=== PATIENT | female | born 1975 | race Caucasian/White ===

== ENCOUNTER → 2018-01-02 | Outpatient (CLI) | payer OTHER ==
[~2018-01-02] MED LIST: ACE3 PO; ACYC800T99 PO; AMOX-559 PO; ASCO-201 PO; CALC-547 PO; DOXY150T6 PO; ESCI20TA38 PO; ESTR1 PO; HYDR-4309 PO; MESA4ENE RC; MID PO; MULT-VITAMIN PO; MULT1CAP41 PO; SUL500 PO; VEN375 PO
--- NOTE | 2018-01-02 14:00 | RADIOLOGY IMAGING REPORT ---
FACILITY: [facility] - [place] PATIENT NAME: LUANN GIBSON : [id number] MR: [id number] V: [id number] EXAM DATE: [id number] ORDERING PHYSICIAN: NANCY BAINS TECHNOLOGIST: Rubi Celaya PROCEDURE:BILATERAL DIGITAL SCREENING MAMMOGRAM WITH CAD ASSISTED INTERPRETATION & 3D TOMOSYNTHESIS COMPARISON:None. TECHNIQUE: MLO & CC views were obtained. This examination was reviewed with the aid of CAD. Breast tissue demonstrates heterogeneous density. INDICATIONS:SCREENING FINDINGS: There is no suspicious mass, calcification or architectural distortion. DIAGNOSTIC CATEGORY 1: NEGATIVE RECOMMENDATIONS: Routine yearly screening mammography. IMPRESSION: BIRADS 1: Negative. No mammographic evidence for malignancy. Dictated by: Tomas Sauer M.D. on 01/02/2018 at 12:21 Transcribed by: DAMARI on 01/02/2018 at 13:29 Approved by: Tomas Sauer M.D. on 01/02/2018 at 13:59 [facility]
== END ==
LOC: MAMO 01:26
PROVIDERS: ATTEND Obstetrics & Gynecology
DX: Z12.31 Encounter for screening mammogram for malignant neoplasm of breast (principal)
CPT/HCPCS: 77063; 77067

== ENCOUNTER 2018-01-06 16:25 | Emergency (ER) | payer OTHER ==
[~2018-01-06] VITALS: Ht 160 cm; Wt 74.8 kg
--- NOTE | 2018-01-06 16:31 | ER Report ---
History and Physical Time Seen By MD: 16:30 (DEVINKYUNG FLORES MD) HPI/ROS CHIEF COMPLAINT: abdominal pain, fevers/chills, n/v/d HISTORY OF PRESENT ILLNESS: This is a 42 year old female. She had start of fevers and chills last night. Having nausea and vomiting last night. Today with dry heaves. Having watery diarrhea since last night. Has ulcerative colitis on immunosuppression. Hs noted some blood in the stool. Abdominal pain is mainly in the left lower abdomen, but also in the left upper and epigastric area as well. About 1 week ago had upper respiratory infection which was improving. She has mild runny nose with this, denies sore throat. She has a headache and some photophobia as well. Has diffuse muscle aches and pains. No dysuria, but has not urinated much as she has not had much to drink recently. No blood in the urine. No rashes. No bruising. No chest pain. .No cough or shortness of breath. Was seen by the nurse practitioner at Dr. Paulino's office today, had a negative influenza and a urinalysis that had blood on the dipstick. On Mesalamine enemas for Ulcerative Colitis and on Remicade and Methotrexate. (KYUNG BELTRAN MD) Allergies: Coded Allergies: adhesive (Verified Allergy, Unknown, 01/06/18) SKIN TURNS BRIGHT RED sulfasalazine (Verified Allergy, Unknown, 01/06/18) MAKES WBCS ELEVATE erythromycin base (Verified Adverse Reaction, Mild, UPSET STOMACH, 06/13/15 ) oxycodone (Verified Adverse Reaction, Mild, UPSET STOMACH, 06/13/15) Home Meds Active Scripts Ondansetron (ZOFRAN ODT) 4 Mg Tab.rapdis, 4 MG PO every 6 hours Y for NAUSEA/ VOMITING, #12 TAB TAKE 1 TABLET BY MOUTH EVERY 12 HOURS Prov:COLTON PELAEZ DO 01/06/18 Prednisone (PREDNISONE) 20 Mg Tablet, 20 MG PO QDAY for reduce intestinal inflammation for 8 Days, #12 2 by mouth daily 4 days then 1 by mouth daily 4 days Prov:COLTON PELAEZ DO 01/06/18 Metronidazole (FLAGYL) 500 Mg Tablet, 500 MG PO BID for infection, #14 TAB Prov:COLTON PELAEZ DO 01/06/18 Ciprofloxacin Hcl (CIPRO) 500 Mg Tablet, 500 MG PO BID for infection, #14 Prov:COLTON PELAEZ DO 01/06/18 Reported Medications Cyclobenzaprine Hcl (CYCLOBENZAPRINE HCL) 10 Mg Tablet, 5 MG PO, #9 TAB 01/06/18 Atorvastatin Calcium (LIPITOR) 10 Mg Tablet, 1 TAB PO QDAY, TAB 01/06/18 Infliximab (REMICADE) 100 Mg Soln, 100 MG IV 01/06/18 Methotrexate Sodium (METHOTREXATE) 2.5 Mg Tablet, 2.5 MG PO 01/06/18 Mesalamine (Mesalamine) 4 G/60 Ml Enema, 4 G RC HS 03/31/13 Ascorbate Calcium (Vitamin C) 500 Mg Tablet, 500 MG PO QDAY 01/07/13 Venlafaxine Hcl (Effexor) 37.5 Mg Tab, 37.5 MG PO BID 01/07/13 Multivitamins W-Minerals (Multivitamin) 1 Cap Capsule, 1 CAP PO DAILY, 0 Refills 06/25/10 Estradiol (Estrace) 1 Mg Tab, 1 MG PO QDAY, 0 Refills 06/25/10 Discontinued Reported Medications Sulfasalazine (AZULFIDINE 500 MG TAB (OR EQUIV)) 500 Mg Tab, 500 MG PO BID 03/31/13 Calcium Carbonate/Vitamin D3 (Calcium + D 600 Mg Tablet) 1 Each Tablet, 1 EACH PO DAILY, 0 Refills 06/25/10 Discontinued Scripts Hydrocodone Bit/Acetaminophen (NORCO 5-325 TABLET) 1 Each Tablet, 1 EACH PO Q4- 6H Y for PAIN, #12 TAB Prov:RIDGE BURKSP 06/13/15 Amoxicillin/Pot Clav 875-125 Mg Tab (AUGMENTIN 875-125 TABLET) 1 Each Tablet, 1 TAB PO Q12H, #14 TAB Prov:RIDGE BURKS [employer] 06/13/15 Past Medical/Surgical History Ulcerative colitis, urinary tract infections, history of C. difficile, hypercholesterolemia, concussions, fibromyalgia, history of right wrist fracture and right foot fracture, has been hospitalized for bacterial meningitis in the past, depression. Surgical history of hysterectomy and right knee surgery and endometriosis. (KYUNG BELTRAN MD) Reviewed Nurses Notes: Yes (KYUNG BELTRAN MD) Hx Smoking: No Smoking Status: Never Smoker Exposure to Second Hand Smoke?: No (KYUNG BELTRAN MD) Constitutional Vital Sign - Last 24 Hours 01/06/18 01/06/18 01/06/18 01/06/18 16:33 18:15 18:45 19:00 Pulse 86 75 72 B/P (MAP) 122/81 124/77 (93) Pulse Ox 99 99 100 O2 Delivery Room Air O2 Flow Rate 2.0 01/06/18 01/06/18 01/06/18 01/06/18 19:15 19:28 19:30 19:45 Pulse 70 86 97 87 Resp 14 B/P (MAP) 124/77 (93) 118/83 (95) Pulse Ox 100 100 100 100 O2 Delivery Nasal Cannula O2 Flow Rate 2 01/06/18 01/06/18 01/06/18 01/06/18 19:49 20:00 20:15 20:20 Pulse 70 65 80 82 Resp 14 B/P (MAP) 104/69 (81) Pulse Ox 99 100 100 100 O2 Delivery Nasal Cannula O2 Flow Rate 2 01/06/18 01/06/18 01/06/18 01/06/18 20:25 20:30 20:35 20:40 Pulse 86 85 80 80 B/P (MAP) 112/71 (85) Pulse Ox 100 100 100 100 01/06/18 01/06/18 01/06/18 01/06/18 20:45 20:50 20:55 21:00 Pulse 79 77 75 79 B/P (MAP) 108/63 (78) Pulse Ox 100 100 100 100 01/06/18 01/06/18 01/06/18 21:05 21:10 21:25 Pulse 73 75 63 Resp 14 B/P (MAP) 110/66 (81) Pulse Ox 100 100 98 O2 Delivery Room Air (COLTON PELAEZ DO) Physical Exam General Appearance: The patient is alert. She is having acute distress because of pain. Eyes: Pupils are equal, round. Reactive to light. No pallor, injection or icterus. Extraocular movements are intact. Hypersensitivity to light on exam. No nystagmus. ENT: Mucous membranes are moist. Normal oral mucosa. Posterior oropharynx is normal. Normal nasal mucosa. Normal tympanic membranes and canals. Neck: Nontender anteriorly with palpation. She does have some pain with neck movement. No lymphadenopathy. Respiratory: Breathing easily and unlabored. Lungs are clear to auscultation. Cardiovascular: Regular rate and rhythm. No murmurs, gallops or rubs. Normal capillary refill. Gastrointestinal: Abdomen is soft, tender throughout, but worse in the left side , mainly lower abdomen. Has some guarding and rebound. Nondistended. Bowel sounds are hypoactive at this time. She does have some CVA tenderness of the left side with percussion, but none on the right. Neurological: Alert and oriented x3. Photophobia as noted. Hurts to move everything, but she can do so without focal weakness although she is very weak generally. Skin: Warm and dry. No rashes. Musculoskeletal: Diffuse musculoskeletal pain. No pain in the back/spine. DIFFERENTIAL DIAGNOSIS: After history and physical exam, differential diagnosis was considered for fevers/chills, nausea, diarrhea, abdominal pain, diffuse muscle aches, neck pain, photophobia in a patient with a history of immunosuppression, ulcerative colitis, c diff, and recent upper respiratory infection. Multiple possible causes of infection and pain and will need to consider the possibility of meningitis as well. ([facility]) Medical Decision Making Data Points Result Diagram: 01/06/18 1705 01/06/18 1705 Laboratory Hematology Test 01/06/18 00:00 01/06/18 17:05 01/06/18 17:37 01/06/18 18:53 Erythrocyte Sedimentation Rate 9 mm/HOUR (0-20) Red Blood Count 5.19 M/uL (4.17-5.56) Mean Corpuscular Volume 88.2 fL (80.0-96.0) Mean Corpuscular Hemoglobin 30.2 pg (26.0-33.0) Mean Corpuscular Hemoglobin Concent 34.3 g/dL (32.0-36.0) Red Cell Distribution Width 13.7 % (11.5-14.5) Mean Platelet Volume 8.9 fL (7.2-11.1) Neutrophils (%) (Auto) 70.6 % (39.4-72.5) Lymphocytes (%) (Auto) 12.1 % (17.6-49.6) Monocytes (%) (Auto) 16.8 % (4.1-12.4) Eosinophils (%) (Auto) 0.2 % (0.4-6.7) Basophils (%) (Auto) 0.3 % (0.3-1.4) Nucleated RBC Relative Count (auto) 0.1 /100WBC Neutrophils # (Auto) 6.3 K/uL (2.0-7.4) Lymphocytes # (Auto) 1.1 K/uL (1.3-3.6) Monocytes # (Auto) 1.5 K/uL (0.3-1.0) Eosinophils # (Auto) 0.0 K/uL (0.0-0.5) Basophils # (Auto) 0.0 K/uL (0.0-0.1) Nucleated RBC Absolute Count (auto) 0.01 K/uL Sodium Level 136 mmol/L (137-145) Potassium Level 3.7 mmol/L (3.5-5.0) Chloride Level 97 mmol/L (98-107) Carbon Dioxide Level 21 mmol/L (22-31) Blood Urea Nitrogen 12 mg/dl (7-18) Creatinine 0.90 mg/dl (0.52-1.04) Glomerular Filtration Rate Calc > 60.0 Random Glucose 97 mg/dl (75-110) Lactate 1.2 mmol/L (0.7-2.1) Calcium Level 10.9 mg/dl (8.4-10.2) Total Bilirubin 0.5 mg/dl (0.2-1.3) Aspartate Amino Transf (AST/SGOT) 40 U/L (0-35) Alanine Aminotransferase (ALT/SGPT) 34 U/L (0-56) Alkaline Phosphatase 154 U/L (0-126) Total Protein 9.0 gm/dl (6.3-8.2) Albumin 4.8 g/dl (3.5-5.0) Amylase Level 109 U/L (0-110) Lipase 68 U/L (23-300) Urine Color Yellow Urine Clarity Clear Urine pH 5.0 pH (4.8-9.5) Urine Specific Baskin >1.060 Urine Protein Negative mg/dL (NEGATIVE) Urine Glucose (UA) Negative mg/dL (NEGATIVE) Urine Ketones 20 mg/dL (NEGATIVE) Urine Blood Negative (NEGATIVE) Urine Nitrite Negative (NEGATIVE) Urine Bilirubin Negative (NEGATIVE) Urine Urobilinogen Negative mg/dL (0.2-1.9) Urine Leukocyte Esterase Negative (NEGATIVE) Urine RBC <1 /HPF (0-2/HPF) Urine WBC 1 /HPF (0-5/HPF) Urine Squamous Epithelial Cells Many /LPF (</=FEW) Urine Bacteria Negative /HPF (NONE-FEW) Urine Mucus Few /HPF (NONE-FEW) Chemistry Test 01/06/18 00:00 01/06/18 17:05 01/06/18 17:37 01/06/18 18:53 Erythrocyte Sedimentation Rate 9 mm/HOUR (0-20) White Blood Count 9.0 k/uL (4.5-11.0) Red Blood Count 5.19 M/uL (4.17-5.56) Hemoglobin 15.7 g/dL (12.0-16.0) Hematocrit 45.7 % (34.0-47.0) Mean Corpuscular Volume 88.2 fL (80.0-96.0) Mean Corpuscular Hemoglobin 30.2 pg (26.0-33.0) Mean Corpuscular Hemoglobin Concent 34.3 g/dL (32.0-36.0) Red Cell Distribution Width 13.7 % (11.5-14.5) Platelet Count 233 K/uL (150-450) Mean Platelet Volume 8.9 fL (7.2-11.1) Neutrophils (%) (Auto) 70.6 % (39.4-72.5) Lymphocytes (%) (Auto) 12.1 % (17.6-49.6) Monocytes (%) (Auto) 16.8 % (4.1-12.4) Eosinophils (%) (Auto) 0.2 % (0.4-6.7) Basophils (%) (Auto) 0.3 % (0.3-1.4) Nucleated RBC Relative Count (auto) 0.1 /100WBC Neutrophils # (Auto) 6.3 K/uL (2.0-7.4) Lymphocytes # (Auto) 1.1 K/uL (1.3-3.6) Monocytes # (Auto) 1.5 K/uL (0.3-1.0) Eosinophils # (Auto) 0.0 K/uL (0.0-0.5) Basophils # (Auto) 0.0 K/uL (0.0-0.1) Nucleated RBC Absolute Count (auto) 0.01 K/uL Glomerular Filtration Rate Calc > 60.0 Lactate 1.2 mmol/L (0.7-2.1) Calcium Level 10.9 mg/dl (8.4-10.2) Total Bilirubin 0.5 mg/dl (0.2-1.3) Aspartate Amino Transf (AST/SGOT) 40 U/L (0-35) Alanine Aminotransferase (ALT/SGPT) 34 U/L (0-56) Alkaline Phosphatase 154 U/L (0-126) Total Protein 9.0 gm/dl (6.3-8.2) Albumin 4.8 g/dl (3.5-5.0) Amylase Level 109 U/L (0-110) Lipase 68 U/L (23-300) Urine Color Yellow Urine Clarity Clear Urine pH 5.0 pH (4.8-9.5) Urine Specific Baskin >1.060 Urine Protein Negative mg/dL (NEGATIVE) Urine Glucose (UA) Negative mg/dL (NEGATIVE) Urine Ketones 20 mg/dL (NEGATIVE) Urine Blood Negative (NEGATIVE) Urine Nitrite Negative (NEGATIVE) Urine Bilirubin Negative (NEGATIVE) Urine Urobilinogen Negative mg/dL (0.2-1.9) Urine Leukocyte Esterase Negative (NEGATIVE) Urine RBC <1 /HPF (0-2/HPF) Urine WBC 1 /HPF (0-5/HPF) Urine Squamous Epithelial Cells Many /LPF (</=FEW) Urine Bacteria Negative /HPF (NONE-FEW) Urine Mucus Few /HPF (NONE-FEW) Urinalysis Test 01/06/18 18:53 Urine Color Yellow Urine Clarity Clear Urine pH 5.0 pH (4.8-9.5) Urine Specific Baskin >1.060 Urine Protein Negative mg/dL (NEGATIVE) Urine Glucose (UA) Negative mg/dL (NEGATIVE) Urine Ketones 20 mg/dL (NEGATIVE) Urine Blood Negative (NEGATIVE) Urine Nitrite Negative (NEGATIVE) Urine Bilirubin Negative (NEGATIVE) Urine Urobilinogen Negative mg/dL (0.2-1.9) Urine Leukocyte Esterase Negative (NEGATIVE) Urine RBC <1 /HPF (0-2/HPF) Urine WBC 1 /HPF (0-5/HPF) Urine Squamous Epithelial Cells Many /LPF (</=FEW) Urine Bacteria Negative /HPF (NONE-FEW) Urine Mucus Few /HPF (NONE-FEW) (COLTON PELAEZ DO) Microbiology Microbiology Date/Time Source Procedure Growth Status 01/06/18 17:37 Blood Blood Culture - Preliminary NO GROWTH AFTER 1 DAY, REINCUBATED Resulted 01/06/18 17:05 Blood Blood Culture - Preliminary NO GROWTH AFTER 1 DAY, REINCUBATED Resulted 01/06/18 18:53 Clean Catch Midstream Ur Urine Culture - Preliminary CONTAMINATED URINE:... Resulted (COLTON PELAEZ DO) EKG/Imaging Imaging X-ray: Two-view chest x-ray was obtained. I viewed the images myself on the PACS system. My interpretation of the images is: No infiltrate, no effusion, normal mediastinum. The radiologist interpretation had no clinically significant variation from this interpretation. Results: CT scan of the head was obtained. The results of the study are CT Head without contrast Indication: Fever. Nausea and vomiting diarrhea. Abdominal pain. Comparison: None available Technique: Axial CT images were obtained through the brain from the skull base to the vertex without administration of IV contrast. Reformatted coronal and sagittal images were also obtained. One of the following dose optimization techniques was utilized in the performance of this exam: automated exposure control; adjustment of the mA and/ or kV according to the patient's size; or use of an iterative reconstruction technique. Specific details can be referenced in the facility's radiology CT exam operational policy. Findings: No evidence of mass, mass effect, or midline shift. No acute intracranial hemorrhage or acute territorial infarction. No extra axial fluid collection or hydrocephalus. No abnormal density. Wang/ white matter differentiation appears normal. Bony structures show no fractures or lesions. Mucosal thickening seen in both maxillary and ethmoid sinuses. Small amount of mucosal thickening seen in the right sphenoid sinus. The remaining sinuses and mastoids visualized are clear. IMPRESSION: 1. No acute intracranial abnormality. 2. Sinus disease. The study was read by the radiologist. I viewed the images myself on the PACS system. Results: CT scan of the abdomen and pelvis with IV contrast was obtained. The results of the study are CT abdomen and pelvis with IV contrast Indication: Fever, nausea and vomiting diarrhea. Abdominal pain. Comparison: None available. . Technique: Axial CT images were obtained through the abdomen and pelvis during injection of nonionic iodinated intravenous contrast. Reformatted coronal and sagittal images were also obtained. One of the following dose optimization techniques was utilized in the performance of this exam: Automated exposure control; adjustment of the mA and/ or kV according to the patient's size; or use of an iterative reconstruction technique. Specific details can be referenced in the facility's radiology CT exam operational policy. Contrast: 75 ml of Isovue-370 IV contrast. Findings: Lower lung ash: Limited views lower lung field are unremarkable. Liver: No focal parenchymal abnormality of the liver. Small area of focal fat along falciform ligament. Biliary: Gallbladder appears unremarkable as well as the intra and extra hepatic biliary system. Pancreas: Normal appearance. Spleen: Normal appearance. Adrenal glands: Unremarkable. Kidneys / retroperitoneum: No evidence of nephrolithiasis or hydronephrosis no focal normality. Bowel / peritoneum / mesenteries: Visualized gastrointestinal tract, including the appendix, within normal limits. The stomach shows no focal abnormality. No free air, free fluid, fluid collections or areas of inflammation. Lymph node assessment: No pathologic adenopathy identified. Pelvic structures: Appear unremarkable. Vessels: No significant atherosclerotic calcifications seen throughout a nonaneurysmal abdominal aorta and branches. Musculoskeletal / Body wall: No acute or aggressive osseous abnormality. Mild degenerative disc changes at L5-S1 level and mild degenerative changes of lumbar spine. IMPRESSION: 1. No acute intra-abdominal abnormality The study was read by the radiologist. I viewed the images myself on the PACS system. (COLTON PELAEZ DO) ED Course/Re-evaluation Clinical Indication for ER IV: Hydration, IV Access ED Course 01/06/2018 7:06:27 pm discussed the utility of an LP to rule out potential meningitis with her headache. Patient on arrival had photophobia with minimal meningismus symptoms. She feels much better after morphine. After receiving informed consent. Patient elects to proceed with LP. It will be performed by nurse practitioner and she is agreeable to let him perform the procedure. Patient has previous lumbar puncture and diagnosis of meningitis. So she is well aware of the risks and benefits. Procedure: Lumbar puncture. Indication: Headache. After verbal informed consent from patient explaining the risks including infection, bleeding, and neurologic damage, a lumbar puncture was performed after the patient was prepped and draped in the usual fashion. The back was anesthetized with 1% lidocaine. Approximately, no fluid was obtained. Opening pressure was not obtained. There were no complications. The procedure was performed by myself. I had a prolonged discussion with the patient, considering whether we need to further pursue the lumbar puncture. Patient is reluctant pursued at this time. She'll be covered for enteritis with Cipro and Flagyl. She'll placed on prednisone taper. She is advised to follow-up with her primary care in her GI specialist if unimproved in 3-5 days. She is cautioned return to the ER for any worsening headache. Decision to Disposition Date: Jan 06, 2018 Decision to Disposition Time: 20:26 (COLTON PELAEZ DO) Depart Departure Latest Vital Signs Vital Signs Date Time Temp Pulse Resp B/P (MAP) Pulse Ox O2 Delivery O2 Flow Rate FiO2 01/06/18 21:25 63 14 110/66 (81) 98 Room Air 01/06/18 19:49 2 (COLTON PELAEZ DO) Impression: Primary Impression: Ulcerative colitis, acute Additional Impression: Fever Condition: Improved Disposition: HOME OR SELF-CARE Referrals: BOOGIE PAULINO DO (PCP) New Scripts Ondansetron (ZOFRAN ODT) 4 Mg Tab.rapdis 4 MG PO every 6 hours Y for NAUSEA/VOMITING, #12 TAB TAKE 1 TABLET BY MOUTH EVERY 12 HOURS Prov: COLTON PELAEZ DO 01/06/18 Prednisone (PREDNISONE) 20 Mg Tablet 20 MG PO QDAY for reduce intestinal inflammation for 8 Days, #12 2 by mouth daily 4 days then 1 by mouth daily 4 days Prov: COLTON PELAEZ DO 01/06/18 Metronidazole (FLAGYL) 500 Mg Tablet 500 MG PO BID for infection, #14 TAB Prov: COLTON PELAEZ DO 01/06/18 Ciprofloxacin Hcl (CIPRO) 500 Mg Tablet 500 MG PO BID for infection, #14 Prov: COLTON PELAEZ DO 01/06/18 Patient Instructions: Ulcerative Colitis (ED) Additional Instructions: Follow-up with your primary care doctor if unimproved in 3-5 days Follow clear liquid diet for 48 hours Problem Qualifiers Primary Impression: Ulcerative colitis, acute Digestive disease complication type: without complication Qualified Codes: K51.90 - Ulcerative colitis, unspecified, without complications Additional Impression: Fever Fever type: unspecified Qualified Codes: R50.9 - Fever, unspecified KYUNG BELTRAN MD Jan 06, 2018 16:30 COLTON PELAEZ DO Jan 06, 2018 18:12
[2018-01-06] MEDS ORDERED: INF100I IV (16:54)
[2018-01-06] MEDS ORDERED: METH2.5T43 PO (16:54)
[2018-01-06] MEDS ORDERED: ATOR10TA24 PO (16:54)
[2018-01-06] MEDS ORDERED: CYCL10TA29 PO (16:54)
[2018-01-06] MEDS ORDERED: NS(*) 0.9% 1000 ML BAG 1,000 ML IV ONE ×2 (17:00→18:45)
[2018-01-06] MEDS ORDERED: MORPHINE 4 MG/ML SDV IVP ONE (17:00)
[2018-01-06] MEDS ORDERED: ONDANSETRON 4 MG/2 ML VIAL IVP ONE (17:00)
[2018-01-06 17:34] LABS: PLATELET COUNT, AUTOMATED 233 K/uL (150-450)
[2018-01-06] MEDS ORDERED: NS 0.9% 150 ML BAG 150 ML ONE (17:34)
[2018-01-06] MEDS ORDERED: IOPAMIDOL 76% 75 ML INFUS BTL 75 ML ONE (17:34)
--- NOTE | 2018-01-06 17:57 | RADIOLOGY IMAGING REPORT ---
FACILITY: PATIENT NAME: Barbra Martins : 1975 MR: [id number] V: [id number] EXAM DATE: ORDERING PHYSICIAN: KYUNG BELTRAN TECHNOLOGIST: Location: [facility] - [place] Patient: Barbra Martins : 1975 Visit/Account:[id number] Date of Sevice: 01/06/2018 2 VIEWS CHEST INDICATION: Left-sided abdominal pain and fever. COMPARISON: None available FINDINGS: Cardiomediastinal silhouette and pulmonary vessels within normal limits. There is no focal infiltrate or lobar consolidation. There is no pneumothorax or pleural effusion. No nodule. Upper abdomen is unremarkable. No acute bony abnormality. IMPRESSION: 1. No acute cardiopulmonary process. Report Dictated By: Ibrahima Lozada at 01/06/2018 5:52 PM Report E-Signed By: Ibrahima Lozada at 01/06/2018 5:53 PM WSN:[id number]
--- NOTE | 2018-01-06 18:18 | RADIOLOGY IMAGING REPORT ---
[facility] PATIENT NAME: Barbra Martins : 1975 MR: [id number] V: [id number] EXAM DATE: ORDERING PHYSICIAN: KYUNG BELTRAN TECHNOLOGIST: [place] [facility] [place] : 1975 Visit/Account:[id number] Date of Sevice: 01/06/2018 CT Head without contrast Indication: Fever. Nausea and vomiting diarrhea. Abdominal pain. Comparison: None available Technique: Axial CT images were obtained through the brain from the skull base to the vertex without administration of IV contrast. Reformatted coronal and sagittal images were also obtained. One of the following dose optimization techniques was utilized in the performance of this exam: autom ated exposure control; adjustment of the mA and/or kV according to the patient's size; or use of an i terative reconstruction technique. Specific details can be referenced in the facility's radiology CT exam operational policy. Findings: No evidence of mass, mass effect, or midline shift. No acute intracranial hemorrhage or acute territorial infarction. No extra axial fluid collection or hydrocephalus. No abnormal density. Wang/white matter differentiat ion appears normal. Bony structures show no fractures or lesions. Mucosal thickening seen in both maxillary and ethmoid sinuses. Small amount of mucosal thickening see n in the right sphenoid sinus. The remaining sinuses and mastoids visualized are clear. IMPRESSION: 1. No acute intracranial abnormality. 2. Sinus disease. Report Dictated By: Ibrahima Lozada at 01/06/2018 6:11 PM Report E-Signed By: Ibrahima Lozada at 01/06/2018 6:15 PM WSN:[id number]
--- NOTE | 2018-01-06 18:27 | RADIOLOGY IMAGING REPORT ---
FACILITY: [facility] - [place] PATIENT NAME: Barbra Martins : 1975 MR: [id number] V: [id number] EXAM DATE: ORDERING PHYSICIAN: KYUNG BELTRAN TECHNOLOGIST: Location: [facility] [place] Patient: Barbra Martins : 1975 Visit/Account:[id number] Date of Sevice: 01/06/2018 CT abdomen and pelvis with IV contrast Indication: Fever, nausea and vomiting diarrhea. Abdominal pain. Comparison: None available. . Technique: Axial CT images were obtained through the abdomen and pelvis during injection of nonioni c iodinated intravenous contrast. Reformatted coronal and sagittal images were also obtained. One of the following dose optimization techniques was utilized in the performance of this exam: Autom ated exposure control; adjustment of the mA and/or kV according to the patient's size; or use of an i terative reconstruction technique. Specific details can be referenced in the facility's radiology C T exam operational policy. Contrast: 75 ml of Isovue-370 IV contrast. Findings: Lower lung ash: Limited views lower lung field are unremarkable. Liver: No focal parenchymal abnormality of the liver. Small area of focal fat along falciform ligamen t. Biliary: Gallbladder appears unremarkable as well as the intra and extra hepatic biliary system. Pancreas: Normal appearance. Spleen: Normal appearance. Adrenal glands: Unremarkable. Kidneys / retroperitoneum: No evidence of nephrolithiasis or hydronephrosis no focal normality. Bowel / peritoneum / mesenteries: Visualized gastrointestinal tract, including the appendix, within n ormal limits. The stomach shows no focal abnormality. No free air, free fluid, fluid collections or areas of inflammation. Lymph node assessment: No pathologic adenopathy identified. Pelvic structures: Appear unremarkable. Vessels: No significant atherosclerotic calcifications seen throughout a nonaneurysmal abdominal aort a and branches. Musculoskeletal / Body wall: No acute or aggressive osseous abnormality. Mild degenerative disc amaro es at L5-S1 level and mild degenerative changes of lumbar spine. IMPRESSION: 1. No acute intra-abdominal abnormality Report Dictated By: Ibrahima Lozada at 01/06/2018 6:15 PM Report E-Signed By: Ibrahima Lozada at 01/06/2018 6:22 PM WSN:[id number]
[2018-01-06] MEDS ORDERED: MORPHINE 2 MG/ML SYR ONE (19:53)
[2018-01-06] MEDS ORDERED: PRED20TA6 PO (20:30)
[2018-01-06] MEDS ORDERED: CIPR-344 PO (20:30)
[2018-01-06] MEDS ORDERED: METR-1 PO (20:30)
[2018-01-06] MEDS ORDERED: ONDA4TAB PO (20:34)
[2018-01-06] MEDS ORDERED: CIPROFLOXACIN 500 MG TAB PO ONE (21:15)
[2018-01-06] MEDS ORDERED: METRONIDAZOLE 500 MG TABLET PO ONE (21:15)
[2018-01-06] MEDS ORDERED: predniSONE 20 MG TAB PO ONE (21:15)
[2018-01-06] MEDS ORDERED: ONDANSETRON 4 MG ODT TH SL ONE (21:15)
[2018-01-06 21:25] VITALS: BP 110/66
== END 2018-01-06 21:32 | disposition home or self-care (01) ==
LOC: ER 16:51
DX: K51.90 Ulcerative colitis, unspecified, without complications (principal); R50.9 Fever, unspecified; R51 Headache
CPT/HCPCS: 62270; 70450; 71046; 74177; 81001; 82150; 83605; 83690; 85025; 85651; 87040; 87088; 96361; 96374; 96375; 99284; J2270; J2405; J7030; J7512; Q9967; S0119; 82040; 82247; 82310; 82374; 82435; 82565; 82947; 84075; 84132; 84155; 84295; 84450; 84460; 84520

== ENCOUNTER → 2018-01-09 | Outpatient (CLI) | payer OTHER ==
[~2018-01-09] MED LIST changes: +ATOR10TA24 PO; +CIPR-344 PO; +CYCL10TA29 PO; +INF100I IV; +METH2.5T43 PO; +METR-1 PO; +ONDA4TAB PO; +PRED20TA6 PO
== END ==
LOC: LAB 11:53
PROVIDERS: ATTEND Nurse Practitioner Family
DX: K51.90 Ulcerative colitis, unspecified, without complications (principal); D69.9 Hemorrhagic condition, unspecified

== ENCOUNTER 2018-03-07 13:30 | Outpatient (RCR) | payer OTHER ==
[2017-12-13] MEDS: LIDOCAINE/SOD BICARB 8.4% SYR ID PRN (14:21)
[2017-12-13 14:26] LABS: PLATELET COUNT, AUTOMATED 261 K/uL (150-450)
[2017-12-13 14:48] VITALS: BP 122/74
[2018-01-24 13:28] VITALS: BP 122/87
[~2018-03-07 13:30] MED LIST changes: +ACETAMINOPHEN 500 MG TAB PO PRN; +DEXTROSE 5%(*) 100 ML BAG 100 ML IVPB PRN; +INFLIXIMAB IVPB ONE; +NS 0.9% IVPB ONE; +NS(*) 0.9% 100 ML BAG 100 ML IVPB PRN; +diphenhydrAMINE 25 MG CAP PO PRN
[2018-03-07 13:38] VITALS: BP 115/72
[2018-03-07 14:07] LABS: PLATELET COUNT, AUTOMATED 266 K/uL (150-450)
[2018-03-07] MEDS: LIDOCAINE/SOD BICARB 8.4% SYR ID PRN (14:31)
[2018-03-07] MEDS ORDERED: NS 0.9% IVPB ONE (15:00)
[2018-03-07] MEDS ORDERED: INFLIXIMAB IVPB ONE (15:00)
== END 2018-03-12 ==
LOC: SPU 13:30
PROVIDERS: ATTEND Family Medicine
DX: K51.90 Ulcerative colitis, unspecified, without complications (principal); M49.80 Spondylopathy in diseases classified elsewhere, site unspecified
CPT/HCPCS: 85025; 96413; 96415; J1745; J7050; 82040; 82247; 82310; 82374; 82435; 82565; 82947; 84075; 84132; 84155; 84295; 84450; 84460; 84520

== ENCOUNTER → 2018-07-16 | Outpatient (RCR) | payer OTHER ==
[2018-04-18 13:59] VITALS: BP 116/76
[2018-04-18] MEDS: LIDOCAINE/SOD BICARB 8.4% SYR ID PRN (14:04)
[2018-04-18] MEDS: NS(*) 0.9% 100 ML BAG 100 ML IVPB PRN (14:05)
[2018-06-02 13:51] VITALS: BP 118/83
[2018-06-02 14:11] LABS: PLATELET COUNT, AUTOMATED 261 K/uL (150-450)
[2018-06-02] MEDS: NS(*) 0.9% 100 ML BAG 100 ML IVPB PRN (14:23)
[2018-06-02] MEDS: LIDOCAINE/SOD BICARB 8.4% SYR ID PRN (14:23)
[~2018-07-16] MED LIST changes: -NS(*) 0.9% 100 ML BAG 100 ML IVPB PRN; +diphenhydrAMINE 50 MG/ML VIAL IVP PRN
[2018-07-16 13:33] VITALS: BP 131/85
[2018-07-16] MEDS: LIDOCAINE/SOD BICARB 8.4% SYR ID PRN (13:56)
[2018-07-16] MEDS: NS(*) 0.9% 100 ML BAG 100 ML IVPB PRN (13:57)
== END ==
LOC: SPU 04-17 10:19
PROVIDERS: ATTEND Family Medicine
DX: K51.90 Ulcerative colitis, unspecified, without complications (principal); M49.80 Spondylopathy in diseases classified elsewhere, site unspecified
CPT/HCPCS: 85025; 96413; 96415; J1745; J7050; 82040; 82247; 82310; 82374; 82435; 82565; 82947; 84075; 84132; 84155; 84295; 84450; 84460; 84520

== ENCOUNTER 2018-10-13 08:15 | Outpatient (RCR) | payer OTHER ==
[2018-08-29 13:26] VITALS: BP 118/68
[2018-08-29 13:44] LABS: PLATELET COUNT, AUTOMATED 287 K/uL (150-450)
[2018-08-29] MEDS: NS(*) 0.9% 100 ML BAG 100 ML IVPB PRN (15:00)
[2018-08-29] MEDS: LIDOCAINE/SOD BICARB 8.4% SYR ID PRN (16:20)
[2018-08-29 16:40] VITALS: BP 111/70
[~2018-10-13 08:15] MED LIST changes: -HYDR-4309 PO; +HYDR-653 PO; +INFLIXIMAB DYYB IV ONE; -INFLIXIMAB IVPB ONE; +NS 0.9% IV ONE; -NS 0.9% IVPB ONE; -diphenhydrAMINE 50 MG/ML VIAL IVP PRN
[2018-10-13 08:34] VITALS: BP 125/78
[2018-10-13] MEDS: LIDOCAINE/SOD BICARB 8.4% SYR ID PRN (08:50)
[2018-10-13] MEDS: NS(*) 0.9% 100 ML BAG 100 ML IVPB PRN (08:51)
[2018-10-13] MEDS ORDERED: INFLIXIMAB DYYB IV ONE (09:30)
[2018-10-13] MEDS ORDERED: NS 0.9% IV ONE (09:30)
== END 2018-11-27 ==
LOC: SPU 08:15
PROVIDERS: ATTEND Family Medicine
DX: K51.90 Ulcerative colitis, unspecified, without complications (principal); M49.80 Spondylopathy in diseases classified elsewhere, site unspecified
CPT/HCPCS: 85025; 96413; 96415; J7050; Q5103; 82040; 82247; 82310; 82374; 82435; 82565; 82947; 84075; 84132; 84155; 84295; 84450; 84460; 84520

== ENCOUNTER → 2018-12-22 | Outpatient (CLI) | payer OTHER ==
[~2018-12-22] MED LIST changes: -ACETAMINOPHEN 500 MG TAB PO PRN; -DEXTROSE 5%(*) 100 ML BAG 100 ML IVPB PRN; +ESTR-33 PO; +ESTR0.5T16 PO; -INFLIXIMAB DYYB IV ONE; +NOR25 PO; -NS 0.9% IV ONE; +VENL75TA12 PO; -diphenhydrAMINE 25 MG CAP PO PRN
== END ==
LOC: LAB 17:49
PROVIDERS: ATTEND Nurse Practitioner Family
DX: K51.00 Ulcerative (chronic) pancolitis without complications (principal)
CPT/HCPCS: 83993

== ENCOUNTER 2019-01-16 08:26 | Outpatient (RCR) | payer OTHER ==
[2018-12-05 09:19] LABS: PLATELET COUNT, AUTOMATED 257 K/uL (150-450)
[2018-12-05 11:02] VITALS: BP 119/65
[~2019-01-16 08:26] MED LIST changes: +ACETAMINOPHEN 500 MG TAB PO PRN; +DEXTROSE 5%(*) 100 ML BAG 100 ML IVPB PRN; +INFLIXIMAB IVPB ONE; +LIDOCAINE/SOD BICARB 8.4% SYR ID PRN; +NS 0.9% IVPB ONE; +NS(*) 0.9% 100 ML BAG 100 ML IVPB PRN; +diphenhydrAMINE 25 MG CAP PO PRN
[2019-01-16] MEDS ORDERED: NS 0.9% IVPB ONE (09:20)
[2019-01-16] MEDS ORDERED: INFLIXIMAB IVPB ONE (09:20)
[2019-01-16 10:07] VITALS: BP 135/80
== END 2019-02-24 15:33 | disposition home or self-care (01) ==
LOC: SPU 08:26
PROVIDERS: ATTEND Family Medicine
DX: K51.90 Ulcerative colitis, unspecified, without complications (principal); M49.80 Spondylopathy in diseases classified elsewhere, site unspecified
CPT/HCPCS: 85025; 96413; 96415; J1745; J7050; 82040; 82247; 82310; 82374; 82435; 82565; 82947; 84075; 84132; 84155; 84295; 84450; 84460; 84520; Q0163

== ENCOUNTER → 2019-02-02 | Outpatient (CLI) | payer OTHER ==
[~2019-02-02] MED LIST changes: -ACETAMINOPHEN 500 MG TAB PO PRN; -DEXTROSE 5%(*) 100 ML BAG 100 ML IVPB PRN; -INFLIXIMAB IVPB ONE; -LIDOCAINE/SOD BICARB 8.4% SYR ID PRN; -NS 0.9% IVPB ONE; -NS(*) 0.9% 100 ML BAG 100 ML IVPB PRN; -diphenhydrAMINE 25 MG CAP PO PRN
--- NOTE | 2019-02-04 08:30 | RADIOLOGY IMAGING REPORT ---
FACILITY: [facility] PATIENT NAME: LUANN GIBSON : [id number] MR: [id number] V: [id number] EXAM DATE: [id number] ORDERING PHYSICIAN: MAC CARTER TECHNOLOGIST: Amy Jarvis PROCEDURE:BILATERAL DIGITAL SCREENING MAMMOGRAM WITH CAD ASSISTED INTERPRETATION & 3D TOMOSYNTHESIS COMPARISON:Prior mammogram 01/02/18. INDICATIONS:SCREENING FINDINGS: The breasts are heterogeneously dense which can obscure small masses. The parenchymal pattern has remained stable allowing for difference in mammographic technique & patient positioning. DIAGNOSTIC CATEGORY 1--NEGATIVE. RECOMMENDATIONS: ROUTINE MAMMOGRAM AND CLINICAL EVALUATION. IMPRESSION: BIRADS 1: Negative. No significant abnormality is seen. Dictated by: Delfina Quigley M.D. on 02/03/2019 at 10:44 Transcribed by: SAMIRA on 02/03/2019 at 11:00 Approved by: Delfina Quigley M.D. on 02/04/2019 at 8:28 [facility]
== END ==
LOC: MAMO 01-30 14:13
PROVIDERS: ATTEND Obstetrics & Gynecology
DX: Z12.31 Encounter for screening mammogram for malignant neoplasm of breast (principal)
CPT/HCPCS: 77063; 77067

== ENCOUNTER 2019-02-27 12:34 | Outpatient (RCR) | payer OTHER ==
[2019-02-27] MEDS ORDERED: NS(*) 0.9% 100 ML BAG 100 ML IVPB PRN (13:30)
[2019-02-27] MEDS ORDERED: DEXTROSE 5%(*) 100 ML BAG 100 ML IVPB PRN (13:30)
[2019-02-27] MEDS ORDERED: LIDOCAINE/SOD BICARB 8.4% SYR ID PRN (13:30)
[2019-02-27 14:01] LABS: PLATELET COUNT, AUTOMATED 273 K/uL (150-450)
[2019-02-27] MEDS ORDERED: diphenhydrAMINE 25 MG CAP PO PRN (14:05)
[2019-02-27] MEDS ORDERED: ACETAMINOPHEN 500 MG TAB PO PRN (14:05)
[2019-02-27] MEDS ORDERED: NS 0.9% IVPB ONE (14:35)
[2019-02-27] MEDS ORDERED: INFLIXIMAB IVPB ONE (14:35)
[2019-02-27 14:38] VITALS: BP 117/66
[2019-02-27 15:32] VITALS: BP 116/72
== END 2019-04-20 16:40 | disposition home or self-care (01) ==
LOC: SPU 12:34
PROVIDERS: ATTEND Nurse Practitioner Family
DX: K51.90 Ulcerative colitis, unspecified, without complications (principal)
CPT/HCPCS: 85025; 86140; J1745; J7050; 82040; 82247; 82310; 82374; 82435; 82565; 82947; 84075; 84132; 84155; 84295; 84450; 84460; 84520; 96365

== ENCOUNTER → 2019-04-09 | Outpatient (REF) | payer OTHER ==
[2019-04-09 17:23] LABS: PLATELET COUNT, AUTOMATED 294 K/uL (150-450)
== END ==
LOC: ZZSENDIN 17:03
PROVIDERS: ATTEND Nurse Practitioner Family
DX: K51.90 Ulcerative colitis, unspecified, without complications (principal)
CPT/HCPCS: 82040; 82247; 82310; 82374; 82435; 82565; 82947; 84075; 84132; 84155; 84295; 84450; 84460; 84520; 85025; 86140

== ENCOUNTER → 2019-05-22 | Outpatient (REF) | payer OTHER ==
[2019-05-22 16:08] LABS: PLATELET COUNT, AUTOMATED 221 K/uL (150-450)
== END ==
LOC: ZZSENDIN 15:55
PROVIDERS: ATTEND Nurse Practitioner Family
DX: K51.90 Ulcerative colitis, unspecified, without complications (principal)
CPT/HCPCS: 82040; 82247; 82310; 82374; 82435; 82565; 82947; 84075; 84132; 84155; 84295; 84450; 84460; 84520; 85025; 86140

== ENCOUNTER → 2019-07-03 | Outpatient (REF) | payer OTHER ==
[2019-07-03 16:43] LABS: PLATELET COUNT, AUTOMATED 263 K/uL (150-450)
== END ==
LOC: ZZSENDIN 16:31
PROVIDERS: ATTEND Nurse Practitioner Family
DX: K51.90 Ulcerative colitis, unspecified, without complications (principal)
CPT/HCPCS: 82040; 82247; 82310; 82374; 82435; 82565; 82947; 84075; 84132; 84155; 84295; 84450; 84460; 84520; 85025; 86140